=== PATIENT | male | born 1970 ===

== ENCOUNTER 2022-02-12 16:43 | Emergency (ER) | payer SELFPAY | END 2022-02-12 16:52 | disposition left against medical advice (07) | LOC: EMS 16:52 | DX: T30.0 Burn of unspecified body region, unspecified degree (principal); X08.8XXA Exposure to other specified smoke, fire and flames, initial encounter; Y93.89 Activity, other specified; Y92.89 Other specified places as the place of occurrence of the external cause; Y99.8 Other external cause status; Z53.21 Procedure and treatment not carried out due to patient leaving prior to being seen by health care provider ==